=== PATIENT | male | born 1960 | race Caucasian/White ===

== ENCOUNTER 2024-09-25 08:07 | Day surgery (SDC) | payer BC ==
[2024-09-25] MEDS ORDERED: Midazolam 1 MG/ML 2 ML SDV ONE (09:03)
[2024-09-25] MEDS ORDERED: Propofol 200 MG/20 ML SDV ONE (09:03)
[2024-09-25] MEDS ORDERED: fentaNYL 50 MCG/ML SDV ONE (09:03)
[2024-09-25] MEDS: Lactated Ringers 1,000 ML IV SCH (09:15)
== END 2024-09-25 13:15 | disposition home or self-care (01) ==
LOC: JP.SDS 08:07
PROVIDERS: ATTEND Surgery
DX: C15.9 Malignant neoplasm of esophagus, unspecified (principal); R13.10 Dysphagia, unspecified; E66.01 Morbid (severe) obesity due to excess calories; F17.210 Nicotine dependence, cigarettes, uncomplicated
CPT/HCPCS: 00731-QZ; 88305; 88341; 88342; J2250; J2704; J3010; J7120

== ENCOUNTER 2024-10-14 06:48 | Day surgery (SDC) | payer BC ==
[2024-10-14] MEDS: Lactated Ringers 1,000 ML IV SCH (07:21)
[2024-10-14] MEDS ORDERED: Propofol 200 MG/20 ML SDV ONE ×3 (07:23→09:18)
[2024-10-14] MEDS ORDERED: fentaNYL 100 MCG/2 ML SDV ONE (07:23)
[2024-10-14] MEDS ORDERED: Midazolam 1 MG/ML 2 ML SDV ONE (07:23)
[2024-10-14] MEDS: ceFAZolin 2 GM in Premix Bag 1 BAG IV ONE (08:40)
[2024-10-14] MEDS: Bupivacaine 0.5%/EPINEPHrine 1:200,000 50 ML MDV ONE (09:15)
[2024-10-14] MEDS: Ondansetron 4 MG/2 ML SDV IVPUSH ONE (10:12)
== END 2024-10-14 11:00 | disposition home or self-care (01) ==
LOC: JP.SDS 06:48
PROVIDERS: ATTEND Surgery
DX: C15.9 Malignant neoplasm of esophagus, unspecified (principal); F17.200 Nicotine dependence, unspecified, uncomplicated; E66.9 Obesity, unspecified
CPT/HCPCS: 36561; 71045; 77001; C1788; C1894; J0690; J1642; J2250; J2405; J2704; J3010; J3490; J7120

== ENCOUNTER 2024-10-23 11:39 | Emergency (ER) | payer BC ==
[2024-10-23 12:23] LABS: HEMOGLOBIN 10.9 g/dL (12.9-16.9); LYMPHOCYTES ABSOLUTE AUTO 0.52 K/uL (0.8-3.3); LYMPHOCYTES PERCENT AUTO 40.6 % (11.4-47.7); MEAN CORPUSCULAR HEMOGLOBIN 28.6 pg (31.6-35.5); MEAN CORPUSCULAR HGB CONC 34.1 g/dL (31.6-35.5); MONOCYTES ABSOLUTE AUTO 0.64 K/uL (0.20-0.90); NEUTROPHILS ABSOLUTE AUTO 0.12 K/uL (1.0-7.6); NEUTROPHILS PERCENT AUTO 9.4 % (40.0-78.1); PLATELET COUNT,PLT 177 K/uL (130-375); RED BLOOD CELL COUNT 3.81 M/uL (4.14-5.76); WHITE BLOOD CELL COUNT,WBC 1.3 K/uL (3.2-11.0)
[2024-10-23] MEDS: Sodium Chloride 0.9% 1,000 ML IV ONE ×2 (12:36→13:26)
[2024-10-23 12:43] LABS: A/G RATIO 0.7 (1.2-2.2); ALANINE AMINOTRANSFERASE,ALT 60 U/L (12-78); ALBUMIN 2.8 g/dL (3.4-5.0); ALKALINE PHOSPHATASE 87 U/L (46-116); ASPARTATE AMNIOTRANSFERASE,AST 24 U/L (15-37); BILIRUBIN TOTAL 1.5 mg/dL (0.2-1.0); BLOOD UREA NITROGEN,BUN 27 mg/dL (7-18); CALCIUM 9.1 mg/dL (8.5-10.1); CARBON DIOXIDE,CO2 19 mmol/L (21-32); CHLORIDE,CL 97 mmol/L (100-108); CREATININE 2.1 mg/dL (0.8-1.3); ESTIMATED GFR 35 mL/min (>60); GLUCOSE RANDOM 333 mg/dL (74-106); POTASSIUM,K 4.2 mmol/L (3.6-5.2); PROTEIN TOTAL,TP 6.9 g/dL (6.4-8.2); SODIUM,NA 130 mmol/L (140-148)
[2024-10-23 12:46] LABS: ANION GAP 18.2 mmol/L (5.0-14.0)
[2024-10-23 12:48] LABS: LACTIC ACID 2.9 mmol/L (0.4-2.0)
[2024-10-23 13:08] LABS: TROPONIN I HIGH SENSITIVITY 279.2 pg/mL (<=60.3)
[2024-10-23 13:19] LABS: CORONAVIRUS COVID-19 NAA NEGATIVE (NEGATIVE); INFLUENZA A NAA NEGATIVE (NEGATIVE); INFLUENZA B NAA NEGATIVE (NEGATIVE); RESPIRATORY SYNCYTIAL VIR NAA NEGATIVE (NEGATIVE)
[2024-10-23] MEDS: Cefepime 2 GM in Sodium Chloride 0.9% 50 ML IV ONE (13:25)
[2024-10-23] MEDS: Nitroglycerin 0.4 MG Tab.SL SL ONE (13:51)
[2024-10-23] MEDS: Aspirin 81 MG Tab.Chew PO ONE (13:51)
[2024-10-23] MEDS ORDERED: Acetaminophen 500 MG Tab PO ONE (14:00)
[2024-10-23] MEDS: VANCOmycin 2 GM in Sodium Chloride 0.9% 500 ML IV ONE (14:07)
[2024-10-23] MEDS: Heparin Sodium 5,000 Units/ML Vial IVPUSH ONE (14:07)
[2024-10-23] MEDS: Heparin Sodium/D5W 25,000 UNITS/500 ML BAG IV SCH (14:08)
[2024-10-23] MEDS: Acetaminophen 1,000 MG in Premix Bag 1 BAG IV ONE (14:25)
== END 2024-10-23 14:50 ==
LOC: JP.ED 11:39
DX: I21.4 Non-ST elevation (NSTEMI) myocardial infarction (principal); D70.9 Neutropenia, unspecified; R50.81 Fever presenting with conditions classified elsewhere; Z79.899 Other long term (current) drug therapy; Z86.16 Personal history of COVID-19
CPT/HCPCS: 0241U; 36415; 71045; 71250; 74176; 80053; 83605; 83735; 83880; 84145; 84484; 85025; 85730; 87040; 87077; 87186; 93005; 96361; 96365; 96367; 96368; 96375; 99285; A9270; J0131; J0692; J1644; J7030; J7040; 93010

== ENCOUNTER 2024-12-28 14:31 | Emergency (ER) | payer BC ==
[2024-12-28 15:44] LABS: BASOPHILS PERCENT AUTO 0.5 % (0.1-1.3); EOSINOPHILS ABSOLUTE AUTO 0.04 K/uL (0.00-0.40); EOSINOPHILS PERCENT AUTO 0.2 % (0.0-5.4); HEMATOCRIT 37.3 % (38.4-49.7); HEMOGLOBIN 11.7 g/dL (12.9-16.9); IMMATURE GRAN PERCENT AUTO 1.8 % (0.0-0.7); LYMPHOCYTES ABSOLUTE AUTO 1.98 K/uL (0.8-3.3); LYMPHOCYTES PERCENT AUTO 8.9 % (11.4-47.7); MEAN CORPUSCULAR HEMOGLOBIN 26.8 pg (31.6-35.5); MEAN CORPUSCULAR HGB CONC 31.4 g/dL (31.6-35.5); MEAN CORPUSCULAR VOLUME 85.6 fL (81.4-99.0); MONOCYTES ABSOLUTE AUTO 0.53 K/uL (0.20-0.90); MONOCYTES PERCENT AUTO 2.4 % (3.3-12.6); NEUTROPHILS ABSOLUTE AUTO 19.09 K/uL (1.0-7.6); NEUTROPHILS PERCENT AUTO 86.2 % (40.0-78.1); PLATELET COUNT,PLT 238 K/uL (130-375); RED BLOOD CELL COUNT 4.36 M/uL (4.14-5.76); WHITE BLOOD CELL COUNT,WBC 22.1 K/uL (3.2-11.0)
[2024-12-28] MEDS: Sodium Chloride 0.9% 1,000 ML IV SCH (15:46)
[2024-12-28 16:10] LABS: A/G RATIO 0.8 (1.2-2.2); ALANINE AMINOTRANSFERASE,ALT 49 U/L (12-78); ALBUMIN 3.1 g/dL (3.4-5.0); ALKALINE PHOSPHATASE 256 U/L (46-116); ASPARTATE AMNIOTRANSFERASE,AST 23 U/L (15-37); BILIRUBIN TOTAL 0.8 mg/dL (0.2-1.0); BLOOD UREA NITROGEN,BUN 21 mg/dL (7-18); CARBON DIOXIDE,CO2 21 mmol/L (21-32); CHLORIDE,CL 102 mmol/L (100-108); CREATININE 1.5 mg/dL (0.8-1.3); EST CRCL DRUG DOSING (CG) 46.08 mL/min; ESTIMATED GFR 52 mL/min (>60); GLUCOSE RANDOM 192 mg/dL (74-106); POTASSIUM,K 4.4 mmol/L (3.6-5.2); PROTEIN TOTAL,TP 6.9 g/dL (6.4-8.2); SODIUM,NA 137 mmol/L (140-148)
[2024-12-28 16:13] LABS: ANION GAP 18.4 mmol/L (5.0-14.0)
[2024-12-28] MEDS: Sodium Chloride 0.9% 100 ML IV ONE (18:38)
[2024-12-28] MEDS: Sodium Chloride 0.9% 10 ML Syringe FLUSH ONE (18:38)
[2024-12-28] MEDS: Iopamidol 612 MG/ML 100 ML Bottle IV ONE (18:38)
== END 2024-12-28 23:52 | disposition other institution (70) ==
LOC: JP.ED 14:31
DX: K56.609 Unspecified intestinal obstruction, unspecified as to partial versus complete obstruction (principal); I25.10 Atherosclerotic heart disease of native coronary artery without angina pectoris; I25.2 Old myocardial infarction; E66.9 Obesity, unspecified; Z68.41 Body mass index [BMI] 40.0-44.9, adult; Z86.16 Personal history of COVID-19; Z87.891 Personal history of nicotine dependence; Z88.1 Allergy status to other antibiotic agents; Z79.82 Long term (current) use of aspirin; Z79.899 Other long term (current) drug therapy
CPT/HCPCS: 36415; 71260; 74177; 80053; 85025; 86140; 96360; 96361; 99285; J7030; Q9967

== ENCOUNTER 2025-05-13 09:37 | Day surgery (SDC) | payer MEDICAID ==
[~2025-05-13 09:37] MED LIST: Propofol 200 MG/20 ML SDV ONE; fentaNYL 50 MCG/ML SDV ONE
[2025-05-13] MEDS: Lactated Ringers 1,000 ML IV SCH (10:07)
== END 2025-05-13 11:33 | disposition home or self-care (01) ==
LOC: JP.SDS 09:37
PROVIDERS: ATTEND Surgery
DX: C15.9 Malignant neoplasm of esophagus, unspecified (principal); K22.10 Ulcer of esophagus without bleeding; E66.01 Morbid (severe) obesity due to excess calories
CPT/HCPCS: 00731; 43239; 88305; 88312; J2704; J3010; J7120; 88341; 88342